=== PATIENT | female | born 1945 | race Asian ===

== ENCOUNTER 2016-08-18 10:03 | Outpatient (CLI) | payer MEDICARE, MEDICAID | END 2016-08-18 10:04 | disposition home or self-care (01) | DX: R30.0 Dysuria (principal) ==

== ENCOUNTER 2016-10-21 08:25 | Outpatient (CLI) | payer MEDICARE, MEDICAID | END 2016-10-21 08:26 | disposition home or self-care (01) | DX: Z12.31 Encounter for screening mammogram for malignant neoplasm of breast (principal) ==

== ENCOUNTER 2017-01-01 10:30 | Outpatient (CLI) | payer MEDICARE, MEDICAID | END 2017-01-01 10:31 | disposition home or self-care (01) | LOC: LAB.WCP 10:30 | PROVIDERS: ATTEND Family Medicine | DX: N39.0 Urinary tract infection, site not specified (principal) | CPT/HCPCS: 87077; 87086 ==

== ENCOUNTER 2017-03-02 14:15 | Outpatient (CLI) | payer MEDICARE, MEDICAID | END 2017-03-02 23:59 | disposition home or self-care (01) | LOC: LAB 14:15 | PROVIDERS: ATTEND Family Medicine | DX: N39.0 Urinary tract infection, site not specified (principal) | CPT/HCPCS: 87086 ==

== ENCOUNTER 2017-04-15 14:34 | Outpatient (CLI) | payer MEDICARE, MEDICAID ==
--- NOTE | 2017-04-16 10:40 | Ultrasound Report ---
PELVIC ULTRASOUND: 04/15/2017 HISTORY: Pelvic pain. TECHNIQUE: Real-time scanning by the hat body sorter with saved static images reviewed. Transabdominal approach for global evaluation and endovaginal scanning for detailed assessment of the uterus and ovaries. FINDINGS: Uterus: 6.8 x 2.9 x 2.9 cm, volume 30 mL, anteverted configuration. Normal uterine echotexture. Endometrium: 11 mm. No vascularity seen. Cervix: Multiple nabothian cysts. Ovaries: Neither ovary is identified. No adnexal masses are seen. Free fluid: None. IMPRESSION: BORDERLINE THICKENED ENDOMETRIAL ECHO IN A POSTMENOPAUSAL FEMALE. SUGGEST FOLLOWUP PELV IC ULTRASOUND FOR REASSESSMENT IN 3-6 MONTHS. JOB #: [id number] EXT JOB #:[id number]
== END 2017-04-15 14:35 | disposition home or self-care (01) ==
LOC: DI 14:34
PROVIDERS: ATTEND Family Medicine
DX: R10.2 Pelvic and perineal pain (principal); R93.8 Abnormal findings on diagnostic imaging of other specified body structures
CPT/HCPCS: 76830; 76856

== ENCOUNTER 2017-06-09 09:20 | Outpatient (CLI) | payer MEDICARE, MEDICAID ==
[2017-06-09 13:00] LABS: ALBUMIN/GLOBULIN RATIO 1.1 (1.0-2.2); BILIRUBIN,TOTAL 0.7 mg/dL (0.2-1.0); CALCIUM 8.7 mg/dL (8.5-10.3); CREATININE 0.9 mg/dL (0.4-1.0); POTASSIUM 4.4 mmol/L (3.5-5.0); TOTAL PROTEIN 7.5 g/dL (6.7-8.2)
== END 2017-06-09 09:21 | disposition home or self-care (01) ==
LOC: LAB.WCP 09:20
PROVIDERS: ATTEND Family Medicine
DX: R42 Dizziness and giddiness (principal)
CPT/HCPCS: 36415; 80053

== ENCOUNTER 2017-06-22 16:20 | Outpatient (CLI) | payer MEDICARE, MEDICAID | END 2017-06-22 16:21 | LOC: LAB.WCP 16:20 | PROVIDERS: ATTEND Family Medicine | DX: N39.0 Urinary tract infection, site not specified (principal) | CPT/HCPCS: 87086 ==

== ENCOUNTER 2017-08-25 08:00 | Outpatient (CLI) | payer MEDICARE, MEDICAID | END 2017-08-25 08:01 | disposition home or self-care (01) | LOC: LAB.WCP 08:00 | PROVIDERS: ATTEND Family Medicine | DX: N39.0 Urinary tract infection, site not specified (principal) | CPT/HCPCS: 87077; 87086 ==

== ENCOUNTER 2018-10-14 08:00 | Outpatient (CLI) | payer MEDICARE, MEDICAID | END 2018-10-14 23:59 | disposition home or self-care (01) | LOC: LAB.WCP 08:00 | PROVIDERS: ATTEND Family Medicine | DX: N39.0 Urinary tract infection, site not specified (principal) | CPT/HCPCS: 81002 ==

== ENCOUNTER 2019-06-27 13:24 | Outpatient (CLI) | payer MEDICARE, MEDICAID ==
--- NOTE | 2019-06-27 15:04 | Mammography Report ---
Reason: ROUTINE MAMMO Procedure Date: 06/27/2019 Accession Number: [id number] / [id number] Procedure: MGN - Screening Mammo Dig Bilat CPT Code: Final Report FULL RESULT: EXAM: Screening Mammo Dig Bilat DATE: 06/27/2019 1:47 PM CLINICAL HISTORY: The patient is an asymptomatic 74-year-old female presenting for screening mammography. No personal nor family history of breast cancer. TECHNIQUE: (B) - Bilateral CC and MLO views were obtained. COMPARISON: 10/13/2016 PARENCHYMAL PATTERN: (D) - The breasts demonstrate heterogeneously dense fibroglandular parenchyma bilaterally. FINDINGS: The pattern of asymmetry is stable given positional differences There are no suspicious masses, calcifications, or areas of distortion. IMPRESSION: Negative examination. BI-RADS category 1. RECOMMENDATION: (ANNUAL) - Recommend routine annual screening mammography. BI-RADS CATEGORY: (2) - Benign Findings. STANDARD QUALIFYING STATEMENTS: 1. This examination was not reviewed with the aid of Computer-Aided Detection (CAD). 2. A negative or benign imaging report should not preclude biopsy if clinically suspicious findings are present. 3. Dense breasts may obscure an underlying neoplasm.
== END 2019-06-27 13:25 | disposition home or self-care (01) ==
LOC: DI.N 13:24
PROVIDERS: ATTEND Family Medicine
DX: Z12.31 Encounter for screening mammogram for malignant neoplasm of breast (principal)
CPT/HCPCS: 77067

== ENCOUNTER 2023-06-08 08:00 | Outpatient (CLI) | payer MEDICARE, MEDICAID | END 2023-06-08 23:59 | disposition home or self-care (01) | LOC: LAB.N 08:00 | PROVIDERS: ATTEND Family Medicine | DX: U07.1 COVID-19 (principal) ==